=== PATIENT | male | born 1965 | race African-American/Black ===

== ENCOUNTER 2022-10-29 02:08 | Emergency (ER) | payer BC, OTHER ==
[2022-10-29] MEDS ORDERED: Acetaminophen 325 MG Tab PO ONE (04:14)
[2022-10-29] MEDS ORDERED: Ibuprofen 400 MG Tab PO ONE (04:14)
[2022-10-29] MEDS ORDERED: Bacitracin Oint 28.35 GM Tube TOP STA (04:14)
[2022-10-29] MEDS ORDERED: Diphtheria,Pertussis(Acell),Tetanus Vaccine 0.5 ML Syringe IM ONE (04:14)
== END 2022-10-29 05:26 | disposition home or self-care (01) ==
LOC: MW.ED 02:08
DX: S50.811A Abrasion of right forearm, initial encounter (principal); I10 Essential (primary) hypertension; Z23 Encounter for immunization; Z79.899 Other long term (current) drug therapy; V89.2XXA Person injured in unspecified motor-vehicle accident, traffic, initial encounter; Y92.410 Unspecified street and highway as the place of occurrence of the external cause
CPT/HCPCS: 70450; 71045; 73090; 90471; 90715; 99285; A9270; 99283